=== PATIENT | male | born 1955 | race Caucasian/White ===

== ENCOUNTER 2019-01-25 13:25 | Emergency (ER) | payer MEDICAID ==
[~2019-01-25] VITALS: Ht 170.2 cm; Wt 77.0 kg
[2019-01-25] MEDS ORDERED: ASPIRIN 81MG TABLET PO ONE (13:45)
[2019-01-25 14:42] LABS: EOSINOPHILS % 1.8 % (0.0-5.0); HEMATOCRIT. 33.1 % (42.0-52.0); HEMOGLOBIN. 11.1 g/dL (14.0-18.0); LYMPHOCYTES % 15.1 % (20.0-50.0); MEAN CORPUSCULAR HEMOGLOBIN 33.9 pg (28.0-32.0); MEAN CORPUSCULAR VOLUME 101.5 fL (80.0-94.0); MEAN PLATELET VOLUME 10.2 fl (7.4-10.4); MONOCYTES % 11.6 % (2.0-8.0); NEUTROPHILS % 70.5 % (40.0-76.0); PLATELET 143 x1000/uL (130-400); RED BLOOD CELL COUNT 3.26 mill/uL (4.7-6.1); RED CELL DISTRIBUTION WIDTH 17.2 % (11.6-14.6)
[2019-01-25 14:49] LABS: CHLORIDE 100 mEq/L (98-107)
[2019-01-25 14:57] LABS: D-DIMER 1.32 mg/L FEU (<0.50); INR 1.4; PARTIAL THROMBOPLASTIN TIME 34.5 sec (23.4-31.0); PROTHROMBIN TIME 13.8 sec (9.6-11.0)
[2019-01-25 16:00] VITALS: BP 165/101
== END 2019-01-25 18:00 | disposition left against medical advice (07) ==
LOC: ER 13:25 → CANBEDREQ 19:50
DX: I21.4 Non-ST elevation (NSTEMI) myocardial infarction (principal); R07.89 Other chest pain; I12.0 Hypertensive chronic kidney disease with stage 5 chronic kidney disease or end stage renal disease; N18.6 End stage renal disease; I50.9 Heart failure, unspecified; Z99.2 Dependence on renal dialysis
CPT/HCPCS: 36415; 71045; 83880; 84484; 85379; 93005; 99284

== ENCOUNTER 2019-11-14 13:53 | Inpatient (IN) | payer MEDICAID ==
[~2019-11-14] VITALS: Ht 167.6 cm; Wt 71.7 kg
[2019-11-14] MEDS ORDERED: LORAZEPAM 1MG TABLET PO ONE ×2 (14:45→17:45)
[2019-11-14 16:15] LABS: EOSINOPHILS % 3.5 % (0.0-5.0); HEMATOCRIT. 31.7 % (42.0-52.0); HEMOGLOBIN. 10.6 g/dL (14.0-18.0); LYMPHOCYTES % 17.4 % (20.0-50.0); MEAN CORPUSCULAR HEMOGLOBIN 33.9 pg (28.0-32.0); MEAN CORPUSCULAR VOLUME 101.4 fL (80.0-94.0); MEAN PLATELET VOLUME 10.4 fl (7.4-10.4); MONOCYTES % 14.1 % (2.0-8.0); PLATELET 117 x1000/uL (130-400); RED BLOOD CELL COUNT 3.13 mill/uL (4.7-6.1); RED CELL DISTRIBUTION WIDTH 14.9 % (11.6-14.6)
[2019-11-14 16:19] LABS: CHLORIDE 98 mEq/L (98-107)
[2019-11-14] MEDS ORDERED: ENOXAPARIN 80MG/0.8ML SYR SUBCUT ONE (16:45)
[2019-11-14] MEDS ORDERED: ONDANSETRON HCL 4MG/2ML INJ IV PRN (17:30)
[2019-11-14] MEDS ORDERED: IPRATROPIUM/ALBUTEROL 0.5-3(2.5)MG/3ML NEB HHN PRN (17:30)
[2019-11-14] MEDS ORDERED: ASPIRIN 81MG TABLET PO ONE (17:30)
[2019-11-14 18:19] LABS: PHOSPHORUS 4.9 mg/dL (2.5-4.9)
[2019-11-15] MEDS: CLONIDINE 0.1MG TABLET PO PRN ×2 (06:27→16:16)
[2019-11-15 06:55] VITALS: BP 167/68
[2019-11-15] MEDS ORDERED: INFLUENZA VIRUS VACCINE(AFLURIA) 0.5ML SYR IM ONE (09:00)
[2019-11-15] MEDS ORDERED: PNEUMOCOCCAL 23-VAL P-SAC VAC 0.5 ML IM ONE (09:00)
[2019-11-15 09:21] LABS: CHLORIDE 96 mEq/L (98-107)
[2019-11-15 09:29] LABS: LDL CHOLESTEROL 21 mg/dL (5-100)
[2019-11-15 09:30] LABS: HDL CHOLESTEROL 59 mg/dL (40-59)
[2019-11-15 09:31] LABS: BASOPHILS % 0.9 % (0.0-2.0); EOSINOPHILS % 2.9 % (0.0-5.0); HEMATOCRIT. 30.2 % (42.0-52.0); HEMOGLOBIN. 10.3 g/dL (14.0-18.0); LYMPHOCYTES % 16.1 % (20.0-50.0); MEAN CORPUSCULAR HEMOGLOBIN 34.2 pg (28.0-32.0); MEAN CORPUSCULAR VOLUME 100.4 fL (80.0-94.0); MEAN PLATELET VOLUME 10.8 fl (7.4-10.4); MONOCYTES % 11.6 % (2.0-8.0); NEUTROPHILS % 68.5 % (40.0-76.0); PLATELET 109 x1000/uL (130-400); RED BLOOD CELL COUNT 3.01 mill/uL (4.7-6.1); RED CELL DISTRIBUTION WIDTH 14.5 % (11.6-14.6)
[2019-11-15] MEDS: AMLODIPINE 5MG TABLET PO SCH (15:53)
[2019-11-15] MEDS: ENOXAPARIN 80MG/0.8ML SYR SUBCUT SCH (15:56)
[2019-11-15 16:00] VITALS: BP 159/61
[2019-11-15 18:12] LABS: FOLIC ACID (FOLATE) SERUM 10.4 ng/mL (>5.38)
[2019-11-15] MEDS ORDERED: IOHEXOL-350 100 ML BOTTLE ONE (18:36)
[2019-11-15 21:00] VITALS: BP 155/65
[2019-11-15] MEDS: ACETAMINOPHEN 325MG TABLET PO PRN (23:56)
[2019-11-16] VITALS: BP 161/76
[2019-11-16 04:00] VITALS: BP 153/63
[2019-11-16 05:51] LABS: BASOPHILS % 1.1 % (0.0-2.0); EOSINOPHILS % 2.7 % (0.0-5.0); HEMATOCRIT. 30.3 % (42.0-52.0); HEMOGLOBIN. 10.4 g/dL (14.0-18.0); LYMPHOCYTES % 22.3 % (20.0-50.0); MEAN CORPUSCULAR HEMOGLOBIN 34.3 pg (28.0-32.0); MEAN CORPUSCULAR VOLUME 99.8 fL (80.0-94.0); MEAN PLATELET VOLUME 10.7 fl (7.4-10.4); MONOCYTES % 11.6 % (2.0-8.0); NEUTROPHILS % 62.3 % (40.0-76.0); PLATELET 109 x1000/uL (130-400); RED BLOOD CELL COUNT 3.04 mill/uL (4.7-6.1); RED CELL DISTRIBUTION WIDTH 14.8 % (11.6-14.6)
[2019-11-16 05:52] LABS: INR 1.2; PROTHROMBIN TIME 13.3 sec (9.6-11.0)
[2019-11-16 08:00] VITALS: BP 163/65
[2019-11-16] MEDS: ENOXAPARIN 80MG/0.8ML SYR SUBCUT SCH (08:48)
[2019-11-16] MEDS: AMLODIPINE 5MG TABLET PO SCH (08:48)
[2019-11-16 12:00] VITALS: BP 157/67
[2019-11-16] MEDS: ACETAMINOPHEN 325MG TABLET PO PRN (12:50)
[2019-11-16] MEDS ORDERED: AMLO10TA80 MT (15:27)
[2019-11-16 15:46] VITALS: BP 150/85
[2019-11-16 16:00] VITALS: BP 150/85
== END 2019-11-16 18:15 | disposition home or self-care (01) | DRG 201 ==
LOC: ER 13:53 → 6WST 16:56 → EDBEDREQ 17:19 → ENRESERV 11-15 03:20
PROVIDERS: ADMIT Internal Medicine; ATTEND Internal Medicine
PROC: 5A1D70Z Performance of Urinary Filtration, Intermittent, Less than 6 Hours Per Day (ICD-10-PCS; principal; 2019-11-15)
DX: I48.20 Chronic atrial fibrillation, unspecified (principal); I13.2 Hypertensive heart and chronic kidney disease with heart failure and with stage 5 chronic kidney disease, or end stage renal disease; D69.6 Thrombocytopenia, unspecified; E11.22 Type 2 diabetes mellitus with diabetic chronic kidney disease; I27.20 Pulmonary hypertension, unspecified; N18.6 End stage renal disease; I08.1 Rheumatic disorders of both mitral and tricuspid valves; D53.9 Nutritional anemia, unspecified; I31.3 Pericardial effusion (noninflammatory); I65.22 Occlusion and stenosis of left carotid artery; D63.1 Anemia in chronic kidney disease; I50.22 Chronic systolic (congestive) heart failure; R29.6 Repeated falls; Z87.891 Personal history of nicotine dependence; Z91.81 History of falling; Z99.2 Dependence on renal dialysis
CPT/HCPCS: 36415; 70496; 70498; 71045; 80048; 80053; 80061; 82607; 82746; 83735; 83880; 84100; 84443; 84484; 85025; 90686; 90732; 93005; 93306; 93880; 93970; 97162; 99285; J1650; Q9967